=== PATIENT | female | born 1950 | race Asian ===

== ENCOUNTER 2018-06-12 22:17 | Emergency (ER) | payer OTHER, SELFPAY ==
[2018-06-12 22:37] VITALS: BP 193/77; PULSE 94; RESP 16; TEMP 36.7; O2SAT 97; BMI 24.7
--- NOTE | 2018-06-12 23:31 | ED.GENADULT ---
HPI - General Adult General Chief complaint: Blood/Body fluid exposure Stated complaint: Needle poke at work Time Seen by Provider: 06/12/18 23:31 Source: patient Mode of arrival: ambulatory Limitations: no limitations History of Present Illness HPI narrative: The patient works at [facility] [employer]. 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 She accidentally lanced the volar side of her right thumb with the land sent for glucose takes. There was initial bleeding from her. It is unclear how much blood possibly came from the client. The incident happened about 2 hr ago work. The wound was clean. There is no pain or bleeding at this time. The wound is almost not seeable. She is right-hand dominant. She thinks her last tetanus injection was less than 5 years ago. She has previously been tested, HIV is negative. She is uncertain of her hepatitis status. She has no history of hepatitis. She is unsure of any risk from the source. 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 She has no obvious high risk concerns. Related Data Allergies Allergy/AdvReac Type Severity Reaction Status Date / Time No Known Drug Allergies Allergy Verified 06/12/18 22:37 Review of Systems Constitutional Denies chills, Denies fever(s) and Denies lethargy Musculoskeletal Denies numbness and Denies tingling Integumentary/Breasts Denies erythema, Denies rash and Reports wounds Neurologic Denies numbness and Denies tingling PFSH Medical History No chronic problems (Acute) Surgical History No history of previous surgery (Acute) Social History Smoking Status: Never smoker Social History Smoking Status: Never smoker Exam Initial Vital Signs Initial Vital Signs: Vital Signs Temperature 98.1 F 06/12/18 22:37 Pulse Rate 94 H 06/12/18 22:37 Respiratory Rate 16 06/12/18 22:37 Blood Pressure 193/77 H 06/12/18 22:37 Pulse Oximetry 97 06/12/18 22:37 Const General: cooperative and well developed Nutritional Appearance: well nourished Orientation: alert, awake and oriented x3 Skin General: no rashes or lesions noted and No petechiae Wounds: wounds noted (Puncture wound to the right volar thumb, wound is barely visible.) Neuro General: alert, oriented x3 and gait abnormal Speech: speech abnormal Motor: muscle tone normal throughout Sensory Exam: no sensory deficits noted Extrem General: normal to inspection Other: CC skin exam. Course Course Narrative: The patient does not require tetanus. She personally has a negative HIV history. She most surely has required hepatitis-B series for her job. She has personally unsure. There is no obvious high risk for the [facility] resident. However this is truly unknown and will require further evaluation tomorrow. Orders Ordered: ED Orders 06/13/18 00:20 HIV 1 and 2 Antibody Stat Hepatitis Acute Panel Stat Vital Signs - 8 hr 06/12/18 22:37 Temperature 98.1 F Pulse Rate 94 H Respiratory Rate 16 Blood Pressure 193/77 H Pulse Oximetry 97 Discharge Plan Departure Patient Disposition: Home Clinical Impression: Needle stick injury of finger Qualifiers: Encounter type: initial encounter Qualified Code(s): S61.239A - Puncture wound without foreign body of unspecified finger without damage to nail, initial encounter Instructions: DI for Accidental Exposure to Body Fluids Activity Restrictions/Additional Instructions: Follow-up with her doctor this coming week to review your tetanus status. Your doctor will need to follow-up on labs. Follow-up with her employer to see if they can help with the patient that was involved in the fingerstick wound. If the patient is agreeable it will be important to understand his/her history of HIV and hepatitis. Your doctor should have this information if available. Return to the ER as needed. Referrals: Basil Guzman MD [Primary Care Provider] -
--- NOTE | 2018-06-13 00:48 | PC.NURSE ---
Pt reports got a needle stick from [employer] needle on R base of the thumb and had cleaned well after the incident at the [facility]. 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 Pt is not aware of pt's full name but just the first name as Vargas in RM 206 or the medical history. The power reactor supervisor had gone to home now. Pt unaware of her Hep B or Td vaccination status. Blood has drawn from patient and document provided to patient to follow up with her PCP or employee health and also vaccination status. Pt reports that the facility will f/u with Vargas's blood draw.
[2018-06-13 00:53] VITALS: BP 177/67; PULSE 71; RESP 16; O2SAT 98
[2018-06-13 02:49] LABS: HIV 1 and 2 Antibody NEGATIVE (NEGATIVE)
[2018-06-15 09:42] LABS: Hepatitis A Antibody IgM NONREACTIVE (NONREACTIVE); Hepatitis Acute Panel Interp 0.01 (NONREACTIVE); Hepatitis B Core Antibody IgM NONREACTIVE (NONREACTIVE); Hepatitis B Surface Antigen NONREACTIVE (NONREACTIVE); Hepatitis C Antibody NONREACTIVE
== END 2018-06-13 00:23 | disposition home or self-care (01) ==
PROVIDERS: Emergency Provider Emergency Medicine; PCP Internal Medicine
DX: Z77.21 Contact with and (suspected) exposure to potentially hazardous body fluids (principal); W46.0XXA Contact with hypodermic needle, initial encounter; Y99.0 Civilian activity done for income or pay
CPT/HCPCS: 36415; 80074; 86703; 99282; 99283